=== PATIENT | female | born 1965 | race Two or more races ===

== ENCOUNTER 2019-09-23 09:18 | Emergency (ER) | payer SELFPAY ==
[2019-09-23 09:24] VITALS: BP 133/86; PULSE 97; TEMP 99.5
--- NOTE | 2019-09-23 09:42 | PDOC ---
Rapid Medical Evaluation Chief Complaint: Cold Symptoms Time Seen by Provider: 09/23/19 09:22 Medical Evaluation: Vital Signs Temp Pulse Resp BP Pulse Ox 99.5 F 97 H 15 133/86 100 09/23/19 09:22 09/23/19 09:22 09/23/19 09:22 09/23/19 09:22 09/23/19 09:22 09/23/19 09:37 Pt is a 54 y/o female who presents to the ED with complaint of sore throat, cough, and fever since yesterday. Her advised her to come get checked for COVID-19. She denies any recent travel or known + COVID contacts. She has taken Tylenol for her symptoms. She denies any sob or CP. Review of Systems Able to Perform ROS?: Yes Constitutional: No: Chills, Loss of Appetite, Night Sweats, Weakness; + fever HEENTM: No: Eye Pain, Vision changes, Ear Pain, Throat Swelling, Mouth Pain, Difficulty Swallowing; + Throat pain Respiratory: No: Shortness of Breath, Wheezing, Sputum Production; + cough Cardiac (ROS): No: Chest Pain, Chest Tightness, Palpitations, Irregular Heart Beat, Edema ABD/GI: No: Nausea, Vomiting, Abdominal Pain, Diarrhea : No Dysuria, No Hematuria, No Frequency, No Urgency Musculoskeletal: No: Muscle Pain, Back Pain, Joint Pain, Muscle Weakness, Neck Pain Integumentary: No: Lesions, Rash Neurological: No: Headache, Numbness, Tingling, Weakness, Speech Difficulties - Physical Exam General Appearance: Nourished, Appropriately Dressed, No Distress, nontoxic appearing HEENT: EOMI, Normal Voice, No Pharyngeal Erythema, No Muffled/Hoarse voice, No Tonsillar Exudate, No Tonsillar Erythema, No Nasal Congestion, No Rhinorrhea, Hearing Grossly Normal Neck: Supple, No Lymphadenopathy (R), No Lymphadenopathy (L), No Rigidity, No Decreased range of motion Respiratory/Chest: Lungs Clear, Normal Breath Sounds. No Respiratory Distress, No Accessory Muscle Use; Good air entry b/l, no wheezes/rales/rhonchi, no retractions, no cough appreciated Cardiovascular: Regular Rhythm, Regular Rate, S1, S2 Gastrointestinal/Abdominal: Normal Bowel Sounds, Soft. Non-tender, No Guarding, No Rebound, No Rigidity Musculoskeletal: Normal Inspection. No Decreased Range of Motion Extremity: Normal Capillary Refill, Normal Inspection Integumentary: Normal Color, Dry. 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 Plan: The patient has been made aware that she is low risk for COVID and does not meet testing criteria at this time. She has been encouraged to call the hotline or go the drive-thru for testing. She should f/u with her primary doctor within 2 days. Discharge Disposition - Diagnosis URI (upper respiratory infection) Qualifiers: URI type: unspecified URI Qualified Code(s): J06.9 - Acute upper respiratory infection, unspecified - Discharge Dispostion Condition at time of disposition: Stable - Referrals - Patient Instructions Printed Discharge Instructions: How to Avoid a Cold or Flu Additional Instructions: You are low risk for COVID-19 (coronavirus). You are to go home and you are instructed to quarantine yourself until you are further instructed by the department of [facility] or the [facility] Hotline. The [facility] may chose to come to your house to test you for the virus. You can also call for an appointment to be tested in the drive-thru in [facility] but you must make an appointment to do so. Be sure to stay away from people who are very young, very old, have underlying medical problems (breathing problems, high blood pressure, diabetes, cancer, immunocompromised). [facility] [phone] Business Hours [phone] After Hours [facility] [phone] [facility] [phone] - Post Discharge Activity
--- NOTE | 2019-09-23 09:52 | PDOC ---
History of Present Illness - General Chief Complaint: Cold Symptoms Stated Complaint: FEVER/SORE THROAT Time Seen by Provider: 09/23/19 09:22 History Source: Patient Exam Limitations: No Limitations - History of Present Illness Initial Comments: 09/23/19 12:14 here with 2 days fevers/ headache/ cough- worried about Covid19 Is this a multiple visit Asthma Patient?: No Timing/Duration: reports: just prior to arrival Severity: reports: moderate Associated Symptoms: reports: cough, dizziness, fever/chills, muscle aches, nasal congestion Past History - Travel Traveled outside of the country in the last 30 days: No Close contact w/someone who was outside of country & ill: No - Psycho Social/Smoking Cessation Hx Smoking History: Never smoked Review of Systems - Review of Systems Able to Perform ROS?: Yes Is the patient limited Cameroonian proficient: Yes Constitutional: Yes: Symptoms Reported, See HPI, Fever, Malaise HEENTM: Yes: Symptoms Reported, Nose Congestion Respiratory: Yes: See HPI, Cough All Other Systems: Reviewed and Negative *Physical Exam - Vital Signs Last Vital Signs Temp Pulse Resp BP Pulse Ox 99.5 F 97 H 15 133/86 100 09/23/19 09:22 09/23/19 09:22 09/23/19 09:22 09/23/19 09:22 09/23/19 09:22 - Physical Exam General Appearance: Yes: Nourished, Appropriately Dressed, Mild Distress HEENT: positive: FAWAD, Normal ENT Inspection, Normal Voice Neck: positive: Supple. negative: Tender Respiratory/Chest: positive: Lungs Clear, Normal Breath Sounds Gastrointestinal/Abdominal: positive: Soft Integumentary: positive: Dry, Warm, Pale Neurologic: positive: Fully Oriented, Alert, Normal Mood/Affect Discharge - Discharge Information Problems reviewed: Yes Clinical Impression/Diagnosis: URI (upper respiratory infection) Qualifiers: URI type: unspecified URI Qualified Code(s): J06.9 - Acute upper respiratory infection, unspecified Condition: Stable Disposition: HOME - Admission No - Follow up/Referral - Patient Discharge Instructions Patient Printed Discharge Instructions: How to Avoid a Cold or Flu, [facility]- Coronavirus Instructions Additional Instructions: You are low risk for COVID-19 (coronavirus). You are to go home and you are instructed to quarantine yourself until you are further instructed by the department of health or the [facility] Hotline. The [facility] may chose to come to your house to test you for the virus. You can also call for an appointment to be tested in the drive-thru in [facility] but you must make an appointment to do so. Be sure to stay away from people who are very young, very old, have underlying medical problems (breathing problems, high blood pressure, diabetes, cancer, immunocompromised). [facility] [phone] Business Hours [phone] After Hours [facility] [place] [phone] [facility] [phone] - Post Discharge Activity Work/Back to School Note: Back to Work
== END 2019-09-23 10:16 | disposition home or self-care (01) ==
LOC: JER 09:18
DX: J06.9 Acute upper respiratory infection, unspecified (principal)
CPT/HCPCS: 99282-25